=== PATIENT | female | born 1950 | race Caucasian/White ===

== ENCOUNTER 2018-06-30 16:24 | Emergency (ER) | payer OTHER ==
[~2018-06-30] VITALS: Ht 170.2 cm; Wt 93.9 kg
[2018-06-30] MEDS ORDERED: CARDURA1 MG PO (16:41)
[2018-06-30] MEDS ORDERED: AVALIDE 300-121 EACH PO (16:41)
[2018-06-30] MEDS ORDERED: ASPIR-LOW81 MG PO (16:42)
[2018-06-30] MEDS ORDERED: MYSOLINE50 MG PO (16:42)
[2018-06-30] MEDS ORDERED: AMIODARONE HCL400 MG PO (16:42)
[2018-06-30] MEDS ORDERED: SIMVASTATIN20 MG PO (16:42)
[2018-06-30] MEDS ORDERED: NEURONTIN600 MG PO (16:42)
[2018-06-30] MEDS ORDERED: CALTRATE 600+D1 EAC1 PO (16:43)
== END 2018-06-30 20:20 | disposition home or self-care (01) ==
LOC: ER 16:24
DX: R51 Headache (principal); J02.8 Acute pharyngitis due to other specified organisms; M54.2 Cervicalgia; M62.838 Other muscle spasm

== ENCOUNTER 2022-02-04 08:21 | Emergency (ER) | payer OTHER ==
[~2022-02-04] VITALS: Ht 167.6 cm; Wt 108.0 kg
[~2022-02-04 08:21] MED LIST: AMIODARONE HCL400 MG PO; ASPIR-LOW81 MG PO; AVALIDE 300-121 EACH PO; CALTRATE 600+D1 EAC1 PO; CARDURA1 MG PO; MYSOLINE50 MG PO; NEURONTIN600 MG PO; SIMVASTATIN20 MG PO
[2022-02-04] MEDS ORDERED: AMIODARONE HCL100 MG (08:38)
[2022-02-04] MEDS ORDERED: INDERAL XL80 MG (08:39)
[2022-02-04] MEDS ORDERED: SYNTHROID50 MCG PO (08:40)
[2022-02-04] MEDS ORDERED: CALTRATE 600 +1 EAC1 PO (08:40)
== END 2022-02-04 12:57 | disposition home or self-care (01) ==
LOC: ER 08:21
DX: R51.9 Headache, unspecified (principal); E78.00 Pure hypercholesterolemia, unspecified; I10 Essential (primary) hypertension; G47.30 Sleep apnea, unspecified; E03.9 Hypothyroidism, unspecified; Z20.822 Contact with and (suspected) exposure to COVID-19; Z88.6 Allergy status to analgesic agent

== ENCOUNTER 2022-06-05 06:43 | Emergency (ER) | payer OTHER ==
[~2022-06-05] VITALS: Ht 167.6 cm; Wt 106.6 kg
[~2022-06-05 06:43] MED LIST changes: +AMIODARONE HCL100 MG; +CALTRATE 600 +1 EAC1 PO; +INDERAL XL80 MG; +SYNTHROID50 MCG PO
== END 2022-06-05 16:57 | disposition home or self-care (01) ==
LOC: ER 06:43
DX: K62.5 Hemorrhage of anus and rectum (principal); U07.1 COVID-19; K57.30 Diverticulosis of large intestine without perforation or abscess without bleeding; Z88.6 Allergy status to analgesic agent; I10 Essential (primary) hypertension; E03.9 Hypothyroidism, unspecified; E78.00 Pure hypercholesterolemia, unspecified; I49.9 Cardiac arrhythmia, unspecified

== ENCOUNTER 2022-07-11 10:14 | Emergency (ER) | payer OTHER ==
[~2022-07-11] VITALS: Ht 167.6 cm; Wt 103.0 kg
[2022-07-11] MEDS ORDERED: CANDESARTAN-HC1 EAC1 PO (10:27)
== END 2022-07-11 12:52 | disposition home or self-care (01) ==
LOC: ER 10:14
DX: M54.50 Low back pain, unspecified (principal); I10 Essential (primary) hypertension; E03.9 Hypothyroidism, unspecified; Z88.6 Allergy status to analgesic agent

== ENCOUNTER 2022-09-15 10:04 | Emergency (ER) | payer OTHER ==
[~2022-09-15] VITALS: Ht 167.6 cm; Wt 104.3 kg
[~2022-09-15 10:04] MED LIST changes: +CANDESARTAN-HC1 EAC1 PO
== END 2022-09-15 20:09 | disposition home or self-care (01) ==
LOC: ER 10:04
DX: K52.9 Noninfective gastroenteritis and colitis, unspecified (principal); K57.30 Diverticulosis of large intestine without perforation or abscess without bleeding; K44.9 Diaphragmatic hernia without obstruction or gangrene; E03.9 Hypothyroidism, unspecified; I10 Essential (primary) hypertension; E78.00 Pure hypercholesterolemia, unspecified; Z88.6 Allergy status to analgesic agent; I48.91 Unspecified atrial fibrillation; G62.89 Other specified polyneuropathies; R51.9 Headache, unspecified; M62.830 Muscle spasm of back

== ENCOUNTER 2022-12-15 08:03 | Emergency (ER) | payer OTHER ==
[~2022-12-15] VITALS: Ht 167.6 cm; Wt 104.3 kg
== END 2022-12-15 09:52 | disposition home or self-care (01) ==
LOC: ER 08:03
DX: U07.1 COVID-19 (principal); Z88.8 Allergy status to other drugs, medicaments and biological substances; Z20.822 Contact with and (suspected) exposure to COVID-19

== ENCOUNTER 2022-12-22 11:40 | Emergency (ER) | payer OTHER ==
[~2022-12-22] VITALS: Ht 160 cm; Wt 102.1 kg
[2022-12-22] MEDS ORDERED: INTESTINEX680 M1 PO (18:51)
[2022-12-22] MEDS ORDERED: PEPCID AC20 MG PO (18:51)
[2022-12-22] MEDS ORDERED: LEVSIN/SL0.125 MG SL (18:51)
[2022-12-22] MEDS ORDERED: METRONIDAZOLE500 MG PO (18:51)
== END 2022-12-22 19:38 | disposition home or self-care (01) ==
LOC: ER 11:40
DX: K52.89 Other specified noninfective gastroenteritis and colitis (principal); K57.92 Diverticulitis of intestine, part unspecified, without perforation or abscess without bleeding; Z88.8 Allergy status to other drugs, medicaments and biological substances; E78.00 Pure hypercholesterolemia, unspecified; E03.9 Hypothyroidism, unspecified; I10 Essential (primary) hypertension

== ENCOUNTER 2023-08-14 12:14 | Emergency (ER) | payer OTHER ==
[~2023-08-14] VITALS: Ht 167.6 cm; Wt 106.6 kg
[~2023-08-14 12:14] MED LIST changes: +INTESTINEX680 M1 PO; +LEVSIN/SL0.125 MG SL; +METRONIDAZOLE500 MG PO; +PEPCID AC20 MG PO
[2023-08-14] MEDS ORDERED: ATACAND32 MG (12:49)
[2023-08-14] MEDS ORDERED: KETOROLAC TROMETHAMINE 30 MG VIAL IM STA (14:18)
== END 2023-08-14 16:50 | disposition home or self-care (01) ==
LOC: ER 12:14
DX: M25.562 Pain in left knee (principal); Z88.5 Allergy status to narcotic agent; Z88.6 Allergy status to analgesic agent
CPT/HCPCS: 73560; 96372; 99283; J1885

== ENCOUNTER 2023-09-05 08:33 | Emergency (ER) | payer OTHER ==
[~2023-09-05] VITALS: Ht 167.6 cm; Wt 90.7 kg
[~2023-09-05 08:33] MED LIST changes: +ATACAND32 MG
[2023-09-05 09:33] LABS: PH,URINE 5.5 (5.0-8.0); URINE APPEARANCE Cloudy; URINE BILIRRUBIN Negative (NEGATIVE); URINE BLOOD Negative; URINE COLOR Yellow; URINE GLUCOSE Negative (NEGATIVE); URINE LEUKOCYTE Large; URINE NITRATE Positive; URINE PROTEIN Trace (NEGATIVE); URINE UROBILINOGEN 0.2 E.U./dl
[2023-09-05 09:33] LABS: HEMATOCRIT 40.6 % (36.0-45.00); HEMOGLOBIN 13.6 g/dL (12.0-15.00); MEAN CORPUSCULAR HEMOGLOBIN 28.1 pg (27.00-32.0); MEAN CORPUSCULAR HGB CONC 33.5 g/dl (32.0-36.0); PLATELET COUNT 201 K/uL (150-450); RED BLOOD COUNT 4.83 M/uL (4.00-6.00); RED CELL DISTRIBUTION WIDTH 13.7 % (11.5-14.5)
[2023-09-05 09:37] LABS: URINE EPITHELIAL CELLS 163.1 uL (0.0-38.8); URINE RBC 5.8 uL (0.0-20.8); URINE WBC 398.2 uL (0.0-23.2)
[2023-09-05 09:57] LABS: URINE BACTERIA > 9821.5 uL (0.0-1933)
[2023-09-05 11:52] LABS: ALBUMIN 3.7 gm/dL (3.4-5.0); BILIRUBIN TOTAL 0.54 mg/dL (0.3-1.2); CALCIUM 8.8 mg/dL (8.5-10.1); CREATININE SERUM 1.48 mg/dL (0.55-1.02); GFR 34.67; GLOBULINA 4.1 G/DL (2.4-3.5); POTASSIUM 4.09 mEq/L (3.5-5.1); TOTAL PROTEIN 7.8 gm/dL (6.4-8.2)
[2023-09-05] MEDS ORDERED: KETOROLAC TROMETHAMINE 15 MG VIAL IV ONE (13:15)
[2023-09-05] MEDS ORDERED: PIPERACILLIN/TAZOBACTAM SODIUM 2.25 GM VIAL IV ONE (13:15)
== END 2023-09-05 13:44 | disposition home or self-care (01) ==
LOC: ER 08:33
PROVIDERS: General Practice
DX: K52.89 Other specified noninfective gastroenteritis and colitis (principal); Z88.8 Allergy status to other drugs, medicaments and biological substances; I10 Essential (primary) hypertension; G47.39 Other sleep apnea; I49.8 Other specified cardiac arrhythmias; G25.2 Other specified forms of tremor
CPT/HCPCS: 36415; 74176; 96365; 99284; J1885; J2543

== ENCOUNTER 2024-08-31 20:52 | Emergency (ER) | payer OTHER ==
[~2024-08-31] VITALS: Ht 157.5 cm; Wt 96.6 kg
[~2024-08-31 20:52] MED LIST changes: +CIPRO500 MG PO; +ZOFRAN8 MG PO
[2024-08-31] MEDS ORDERED: ATACAND HCT 321 EACH (20:59)
[2024-08-31] MEDS ORDERED: ZOCOR20 MG PO (21:00)
[2024-08-31] MEDS ORDERED: NEURONTIN600 M1 PO (21:00)
[2024-08-31] MEDS ORDERED: ADULT LOW DOSE81 M1 (21:00)
[2024-08-31] MEDS ORDERED: ORPHENADRINE CITRATE 30 MG/ML AMPUL IM STA (21:35)
[2024-08-31] MEDS ORDERED: DEXAMETHASONE SODIUM PHOSPHATE 4 MG/ML VIAL IM STA (21:36)
== END 2024-08-31 21:36 | disposition home or self-care (01) ==
LOC: ER 20:54
DX: M54.9 Dorsalgia, unspecified (principal); Z88.8 Allergy status to other drugs, medicaments and biological substances
CPT/HCPCS: 96372; 99282; J1100; J2360

== ENCOUNTER 2025-03-06 12:33 | Emergency (ER) | payer OTHER ==
[~2025-03-06] VITALS: Ht 167.6 cm; Wt 93.0 kg
[~2025-03-06 12:33] MED LIST changes: +ADULT LOW DOSE81 M1; +ATACAND HCT 321 EACH; +NEURONTIN600 M1 PO; +ZOCOR20 MG PO
[2025-03-06] MEDS ORDERED: ACETAMINOPHEN 500 MG GEL..CAP PO ONE (15:00)
[2025-03-06] MEDS ORDERED: ORPHENADRINE CITRATE 30 MG/ML AMPUL IM ONE (15:00)
[2025-03-06 15:36] LABS: BASO % 0.7 % (0.1-1.2); EOS # 0.14 (0.04-0.54); EOS % 1.6 % (0.7-7.0); LYMPH # 2.43 (1.18-3.74); LYMPH % 28.6 % (19.3-53.1); MEAN PLATELET VOLUME 11.20 fl (9.4-12.4); MONO # 0.70 (0.24-0.82); MONO % 8.2 % (4.7-12.5); NEUT # 5.15 (1.56-6.13); NEUT % 60.8 % (34.0-71.1); RED CELL DISTRIBUTION WIDTH 12.3 % (11.6-14.4)
== END 2025-03-06 18:27 ==
LOC: ER 12:36
PROVIDERS: General Practice
DX: M17.12 Unilateral primary osteoarthritis, left knee (principal); E11.9 Type 2 diabetes mellitus without complications; Z79.84 Long term (current) use of oral hypoglycemic drugs; E03.9 Hypothyroidism, unspecified; Z88.8 Allergy status to other drugs, medicaments and biological substances
CPT/HCPCS: 36415; 73560; 96372; 99283; J2360

== ENCOUNTER 2025-06-12 07:54 | Outpatient (CLI) | payer OTHER | END 2025-06-12 07:55 | disposition home or self-care (01) | LOC: NUCLEAR 07:54 | DX: I25.111 Atherosclerotic heart disease of native coronary artery with angina pectoris with documented spasm (principal) | CPT/HCPCS: 78451; 93017; A9500; J1250 ==